=== PATIENT | female | born 1980 | race American Indian/Alaskan Native ===

== ENCOUNTER 2016-09-22 19:56 | Emergency (ER) | payer SELFPAY ==
--- NOTE | 2016-09-23 01:03 | ER ---
ADMIT: 09/22/2016 RM/LOC: ER [facility] MR#: [id number] [id number] JUAN C DAVIS [address] [place] [address] Emergency Room Report SEX: F AGE: 35 : 1980 DATE: 09/22/2016 HISTORY OF PRESENT ILLNESS: The patient is a 35-year-old female, who came to the ER with past medical history of asthma and the chief complaint of cough, sore throat, and feeling tired and fever and dizzy since yesterday. The patient states children has been diagnosed with influenza for the last few days. The patient has complains of runny nose and fever and chills. In the ER, the patient has temperature of 101 and received Tylenol for that, the patient was not tachypneic, heart rate was mildly elevated 116, which is with control of the fever. Head and neck have mild erythematous oropharynx without any exudates, no lymphadenopathy on the neck, lungs are clear bilaterally, abdomen is soft and the rest of the physical exam is noncontributory. The patient was positive for influenza B antigen. The patient was discharged to home. Advised on taking Tylenol for controlling fever and Tamiflu for 5 days and follow up with the primary doctor as needed. Mario Campbell MD/ nico JOB #: [id number] CC: Mario Campbell MD, Attending Physician
== END 2016-09-22 21:15 | disposition home or self-care (01) ==
LOC: ER 19:56
DX: J11.1 Influenza due to unidentified influenza virus with other respiratory manifestations (principal); Z88.0 Allergy status to penicillin